=== PATIENT | female | born 1990 | race American Indian/Alaskan Native ===

== ENCOUNTER 2024-07-14 19:53 | Emergency (ER) | payer SELFPAY ==
[~2024-07-14] VITALS: Ht 162.6 cm; Wt 54.0 kg
[2024-07-14 20:02] VITALS: O2SAT 98
[2024-07-14 22:17] LABS: BASOPHILS % 0.3 % (0.0-2.0); EOSINOPHILS % 1.3 % (0.0-5.0); HEMATOCRIT. 28.7 % (36.0-48.0); HEMOGLOBIN. 10.2 g/dL (12.0-16.0); LYMPHOCYTES % 24.5 % (20.0-50.0); MEAN CORPUSCULAR HEMOGLOBIN 29.7 pg (28.0-32.0); MEAN CORPUSCULAR HGB CONC 35.4 g/dL (31.0-37.0); MONOCYTES % 5.3 % (2.0-8.0); NEUTROPHILS % 68.6 % (40.0-76.0); PLATELET 399 x1000/uL (130-400); RED BLOOD CELL COUNT 3.41 mill/uL (4.2-5.4); RED CELL DISTRIBUTION WIDTH 13.1 % (11.6-14.6); WHITE BLOOD COUNT 7.1 x1000/uL (4.5-11.0)
[2024-07-14 22:26] LABS: CHLORIDE 105 mEq/L (98-107); POTASSIUM 3.6 mEq/L (3.5-5.1); SODIUM 138 mEq/L (136-145)
[2024-07-14 22:27] LABS: CALCIUM 7.4 mg/dL (8.7-10.4); CARBON DIOXIDE 25 mEq/L (21-32)
[2024-07-14 22:32] LABS: CREATININE 0.4 mg/dL (0.6-1.0); GLUCOSE 96 mg/dL (70-105); HCG SCREEN NEGATIVE; UREA NITROGEN BLOOD 13 mg/dL (9-23)
[2024-07-14 22:36] LABS: TROPONIN I HIGH SENSITIVITY < 4 ng/L (3.0-34)
[2024-07-14] MEDS: SODIUM CHLORIDE 0.9% 1,000 ML IV ONE (23:38)
[2024-07-15 00:03] LABS: TROPONIN I HIGH SENSITIVITY < 4 ng/L (3.0-34)
[2024-07-15 04:31] VITALS: BP 128/69; PULSE 70; RESP 16; TEMP 36.8; O2SAT 98
== END 2024-07-15 05:16 | disposition home or self-care (01) ==
LOC: ER 19:53
DX: N92.0 Excessive and frequent menstruation with regular cycle (principal); D64.9 Anemia, unspecified; R55 Syncope and collapse
CPT/HCPCS: 80048; 84703; 85025; 84484; 36415; 93005; 96360; 99284; J7030; Z7610